=== PATIENT | male | born 1975 | race Caucasian/White ===

== ENCOUNTER → 2017-06-15 | Outpatient (REF) | LOC: WSOH 08:03 | DX: Z00.00 Encounter for general adult medical examination without abnormal findings (principal) ==

== ENCOUNTER → 2018-02-13 | Outpatient (REF) | LOC: ZLAB.WCH 14:25 | DX: Z01.89 Encounter for other specified special examinations (principal) ==

== ENCOUNTER 2021-08-11 12:26 | Day surgery (SDC) | payer OTHER ==
[~2021-08-11] VITALS: Ht 172.7 cm; Wt 104.5 kg
[2021-08-11] VITALS (7 sets, daily range): BP systolic 128–141; BP diastolic 65–85; PULSE 83–95; TEMP 97.9–98.5
[2021-08-11] MEDS ORDERED: CYMBALTA 30MG30 MG PO (14:31)
[2021-08-11] MEDS ORDERED: GLUCOPHAGE500 MG/TAB PO (14:31)
[2021-08-11] MEDS ORDERED: ZOCOR 20MG20 MG PO (14:32)
[2021-08-11] MEDS ORDERED: STOOL SOFTENER100 M2 PO (14:33)
[2021-08-11] MEDS ORDERED: PERCOCET 325 MG1 TA2 PO (16:28)
--- NOTE | 2021-08-11 17:00 | NUR ---
Patient returns to room 8 per cart from PACU accompanied by Zakia BOWLING and is awake and alert. IV fluids infusing and site is free of redness. Taking ice chips and denies pain or nausea. Spouse here. Patient states that he is needing to void. IV to INT and ambulates across the bagley to the bathroom. Patient is unable to void and returns to room. Call light in reach. Drank apple juice and is drinking water.
--- NOTE | 2021-08-11 17:15 | NUR ---
Dressing dry to rectal area. Resting and drinking water.
--- NOTE | 2021-08-11 17:30 | NUR ---
Continues to rest and is sipping on water. Denies need for pain medication and denies nausea.
--- NOTE | 2021-08-11 17:45 | NUR ---
Patient is eating toast and drinking water.
--- NOTE | 2021-08-11 18:00 | NUR ---
Medicated with Percocet 5mg for pain at 4/10. Up walking in hallway. Able to void and returns to room. INT discontinued. Dressed and ready for discharge.
--- NOTE | 2021-08-11 18:07 | NUR ---
Demonstrated how to use portable sitz bath. Instructed on warm showers. Provided 4x4 gauze if needed. Spouse and patient verbalize understanding of the instructions.
--- NOTE | 2021-08-11 18:10 | NUR ---
Patient dismissed to home driven by spouse and ambulated to the emergency room entrance and assisted into vehicle with dismissal instructions in hand.
== END 2021-08-11 18:10 | disposition home or self-care (01) ==
LOC: SDCO 12:26
DX: K64.5 Perianal venous thrombosis (principal); K64.2 Third degree hemorrhoids; I10 Essential (primary) hypertension; E11.9 Type 2 diabetes mellitus without complications; E78.5 Hyperlipidemia, unspecified; F17.210 Nicotine dependence, cigarettes, uncomplicated; Z20.822 Contact with and (suspected) exposure to COVID-19; Z79.84 Long term (current) use of oral hypoglycemic drugs; Z93.3 Colostomy status; F90.9 Attention-deficit hyperactivity disorder, unspecified type
CPT/HCPCS: J0690; J1100; J1885; J2405; J3010; J7120